=== PATIENT | male | born 1990 | race African-American/Black ===

== ENCOUNTER 2020-07-16 12:02 | Emergency (ER) | payer OTHER ==
[2020-07-16 14:19] LABS: HBSAB Concentration Less than 8.00 mIU/mL; HIV (1/2) Antibody/Antigen Non-Reactive (NonReactive); HIV 1/2 INDEX 0.18 S/CO (<1.00); Hep B Surf AB Non-Reactive (NonReactive); Hep C IgG Ab Non-Reactive (NonReactive); Hep C Index 0.11 S/CO (0-0.79)
== END 2020-07-16 14:21 ==
LOC: ERS 12:02
DX: S51.852A Open bite of left forearm, initial encounter (principal); S51.851A Open bite of right forearm, initial encounter; J45.909 Unspecified asthma, uncomplicated; F41.9 Anxiety disorder, unspecified; F31.9 Bipolar disorder, unspecified; F20.9 Schizophrenia, unspecified; F43.10 Post-traumatic stress disorder, unspecified; F17.210 Nicotine dependence, cigarettes, uncomplicated; Y04.1XXA Assault by human bite, initial encounter
CPT/HCPCS: 36415; 86706; 86803; 87389; 99283